=== PATIENT | male | born 1960 | race African-American/Black ===

== ENCOUNTER 2022-09-27 09:37 | Outpatient (REF) | payer OTHER, SELFPAY ==
--- NOTE | ~2022-09-27 | XR_ITS ---
EXAMINATION: XR SKELETAL SURVEY CLINICAL INFORMATION: Monoclonal gammopathy. COMPARISON: None. TECHNIQUE: Whole body bone survey was performed. FINDINGS: Skull: Unremarkable. Cervical Spine: Degenerative disc changes C4-C5, C5-C6 disc levels with mild ventral spondylosis. No lytic process seen. Dorsal Spine: There is normal thoracic kyphosis. The vertebral heights, alignment and disc heights are normal. No lytic or sclerotic process seen. Lumbar Spine: There is normal lumbar lordosis. The vertebral heights, alignment and disc heights are normal. There is no lytic or sclerotic process seen. No acute fracture noted. Chest: The lungs are well expanded and clear. Heart size and pulmonary vascularity is normal. No gross bony abnormality seen. Bilateral Upper Extremities: no fracture, aggressive lytic or sclerotic process seen. Right Lower Extremity: No lytic or sclerotic process seen. There is mild degenerative periarticular spurring right hip. Left Lower Extremity: No lytic or sclerotic process seen. Mild degenerative periarticular spurring. XR/XR bone survey IMPRESSION: No aggressive lytic or sclerotic process seen on whole body bone survey. No change from 12/11/2018.
== END 2022-09-27 09:38 | disposition home or self-care (01) ==
LOC: HO.XRAY 09:37
PROVIDERS: PCP Internal Medicine; Visit Provider Internal Medicine
DX: D47.2 Monoclonal gammopathy (principal)
CPT/HCPCS: 77075

== ENCOUNTER 2022-11-01 08:57 | Day surgery (SDC) | payer OTHER, SELFPAY ==
[2022-11-01] VITALS (7 sets, daily range): BP systolic 116–132; BP diastolic 68–82; PULSE 46–61; RESP 16–20; TEMP 36.1–36.3; O2SAT 94–99; BMI 27.1
--- NOTE | ~2022-11-01 | CT_ITS ---
EXAMINATION: CT GUIDED RIGHT ILIAC CREST BONE MARROW BIOPSY CLINICAL INDICATIONS: Multiple myeloma/MGUS. COMPARISON: None. TECHNIQUE: Following explaining CT fluoroscopy-guided left iliac crest bone marrow biopsy procedure, benefits and risk, a written consent was obtained. Patient was placed prone on fluoroscopy table and preliminary CT imaging was obtained through the pelvis. Marker was placed along the skin overlying the posterior iliac crest and repeat imaging was obtained. An optimal marker was selected and marked on the skin. Marked area was cleaned and draped in usual sterile manner with 2% chlorhexidine solution. 1% lidocaine was injected at the puncture site. Through a small skin incision a 16-gauge guide needle was advanced from the skin to the level of posterior iliac crest bony cortex. Using an electrical drill the needle was advanced through the bony cortex into the bone marrow. The stylet was removed and 2 syringes each with EDTA and heparin were connected to the needle and simple aspiration was performed. Subsequently a long 16-gauge needle coaxially was inserted and drilled through the bone marrow and 2 bone marrow samples were collected. Postprocedure the guide needle was removed and complete hemostasis achieved at puncture site. Simple dressing applied postprocedure. Patient tolerated procedure extremely well. Conscious sedation was utilized during the exam and patient monitored by IR radiologist and IR nurse for 25 minutes. FINDINGS: On preliminary CT imaging the bone marrow appears unremarkable. The bony cortex of the pelvis and the sacrum is unremarkable. Bone marrow aspiration was performed twice with EDTA and heparin in a syringe. Subsequently 2 core biopsies were obtained. Sample collected was handed to cytopathology for further investigation. CT/CT biopsy aspirate bone marrow IMPRESSION: Successful CT fluoroscopy-guided bone marrow aspiration x 2 and bone marrow core biopsy performed without immediate complications. Dose: 301 mGy/cm2.
[2022-11-01 09:34] LABS: MANUAL DIFF FLAG NO
[2022-11-01 09:39] LABS: Basophils Percent Auto 0.8 % (0-2); Eosinophils Absolute Auto 0.1 X10*3/uL (0.0-0.4); Eosinophils Percent Auto 2.7 % (0-4); Hematocrit 40.2 % (42.0-52.0); Mean Corpuscular HGB Conc 34.8 g/dl (31.0-36.0); Mean Corpuscular Hemoglobin 31.9 pg (27.0-33.0); Mean Corpuscular Volume 91.6 fL (80.0-98.0); Mean Platelet Volume 10.9 fL (9.4-12.4); Monocytes Absolute Auto 0.3 X10*3/uL (0.1-1.2); Monocytes Percent Auto 12.1 % (2-11); Neutrophils Absolute Auto 1.3 x10*3/uL (2.0-8.3); Neutrophils Percent Auto 48.4 % (45-73); Platelet Count 207 X10*3/uL (160-400); Red Blood Count 4.39 X10*6/uL (4.60-5.80); White Blood Count 2.6 X10*3/uL (4.8-10.8)
[2022-11-01 09:43] LABS: Prothrombin Time 11.9 SEC (10.0-13.1)
[2022-11-01 09:46] LABS: Partial Thromboplastin Time 27.7 SEC (26.0-36.4)
[2022-11-01 13:29] LABS: Bone Marrow SEE SEPARATE REPORT
== END 2022-11-01 15:02 | disposition home or self-care (01) ==
PROVIDERS: Radiology Diagnostic Radiology; PCP Internal Medicine; Visit Provider Internal Medicine
DX: C90.00 Multiple myeloma not having achieved remission (principal)
CPT/HCPCS: 36415; 38222; 85025; 85610; 85730; 88184; 88185; 88237; 88264; 88305; 88311; 88313; 88341; 88342; 88344; 99152; J1642; J2250; J3010